=== PATIENT | male | born 1965 | race Caucasian/White ===

== ENCOUNTER → 2017-10-23 | Outpatient (CLI) | payer SELFPAY ==
[~2017-10-23] MED LIST: CEPH500 PO; CLON.1 PO; CLON.2 PO; FURO40 PO; LOSA25 PO; METO100ER PO; POTCHL20ER PO; ZESTORETIC 20-121 EA
[2017-10-23 11:27] LABS: BASOPHILS ABSOLUTE AUTO 0.03 K/mm3 (0.00-0.23); BASOPHILS PERCENT AUTO 1 % (0-2); EOSINOPHILS PERCENT AUTO 0 % (0-6); Hematocrit 47.3 % (37.0-53.0); Hemoglobin 17.6 g/dL (13.5-17.5); IMMATURE GRAN ABSOLUTE AUTO 0.06 K/mm3 (0.00-0.10); IMMATURE GRAN PERCENT AUTO 1 % (0-1); LYMPHOCYTES ABSOLUTE AUTO 1.83 K/mm3 (0.84-5.20); LYMPHOCYTES PERCENT AUTO 29 % (21-46); MONOCYTES ABSOLUTE AUTO 0.49 K/mm3 (0.16-1.47); MONOCYTES PERCENT AUTO 8 % (4-13); Mean Corpuscular HGB 31.9 pg (26.0-34.0); Mean Corpuscular HGB Conc 37.2 g/dL (31.5-36.5); Mean Corpuscular Volume 86 fL (80-100); Mean Platelet Volume 10.6 fL (9.1-12.4); NEUTROPHILS ABSOLUTE AUTO 3.89 K/mm3 (1.96-9.15); NEUTROPHILS PERCENT AUTO 62 % (41-73); Platelet Count 208 K/mm3 (150-400); RDW Coefficient Variation 12.4 % (11.7-14.2); RDW Standard Deviation 38.5 fL (35.1-46.3); Red Blood Cell Count 5.52 M/mm3 (4.30-5.90)
[2017-10-23 12:56] LABS: Anion Gap 12 mmol/L (6-16); Blood Urea Nitrogen 16 mg/dL (8-24); Bun/Creatinine Ratio 18.5 (12.0-20.0); CO2, Blood 22 mmol/L (21-32); Calcium, Blood 9.2 mg/dL (8.5-10.1); Chloride, Blood 104 mmol/L (98-108); Creatinine, Blood 0.86 mg/dL (0.60-1.20); Glomerular Filtration Rate >60 (60-); Glucose, Blood 363 mg/dL (70-99); Potassium, Blood 4.2 mmol/L (3.5-5.5); Sodium, Blood 138 mmol/L (136-145); Troponin I <0.015 ng/mL (0.000-0.040)
== END ==
LOC: LAB SHORT 11:22
PROVIDERS: Physician Assistant Surgical
DX: R07.9 Chest pain, unspecified (principal)
CPT/HCPCS: 80048; 84484; 85025

== ENCOUNTER 2018-06-26 13:06 | Emergency (ER) | payer MEDICAID ==
[~2018-06-26] VITALS: Ht 177.8 cm; Wt 117.9 kg
[~2018-06-26 13:06] MED LIST changes: -CEPH500 PO
[2018-06-26] MEDS ORDERED: CEPH500 PO (14:00)
== END 2018-06-26 14:27 | disposition home or self-care (01) ==
LOC: ER 13:06
DX: S61.012A Laceration without foreign body of left thumb without damage to nail, initial encounter (principal); Z23 Encounter for immunization; I10 Essential (primary) hypertension; Z79.899 Other long term (current) drug therapy; W26.0XXA Contact with knife, initial encounter
CPT/HCPCS: 12001; 90471; 90714; 99282

== ENCOUNTER 2021-02-08 16:02 | Inpatient (IN) | payer OTHER ==
[~2021-02-08] VITALS: Ht 180.3 cm; Wt 131.2 kg
== END 2021-02-08 23:05 | disposition short-term general hospital (02) | DRG 281 ==
LOC: ER 16:02 → ICUW 18:51 → PCU 21:20
PROVIDERS: ADMIT Family Medicine
PROC: B2111ZZ Fluoroscopy of Multiple Coronary Arteries using Low Osmolar Contrast (ICD-10-PCS; principal; 2021-02-08)
DX: I21.4 Non-ST elevation (NSTEMI) myocardial infarction (principal); E87.1 Hypo-osmolality and hyponatremia; I25.10 Atherosclerotic heart disease of native coronary artery without angina pectoris; I10 Essential (primary) hypertension; E78.5 Hyperlipidemia, unspecified; E66.01 Morbid (severe) obesity due to excess calories; E11.65 Type 2 diabetes mellitus with hyperglycemia; Z79.84 Long term (current) use of oral hypoglycemic drugs; Z79.899 Other long term (current) drug therapy; Z68.38 Body mass index [BMI] 38.0-38.9, adult; Z95.5 Presence of coronary angioplasty implant and graft; Z71.3 Dietary counseling and surveillance
CPT/HCPCS: 0241U; 36415; 71046; 76937; 80053; 82803; 82947; 83880; 84484; 85025; 85610; 85730; 93005; 93010; 93454; 96361; 96374; 99152; 99153; 99285-25; A9270; C1760; C1769; C1894; J0360; J1644; J2250; J3010; J7030; Q9967

== ENCOUNTER 2025-03-03 15:54 | Inpatient (IN) | payer BC ==
[2025-03-03] VITALS (7 sets, daily range): BP systolic 173–223; BP diastolic 102–131
[~2025-03-03] VITALS: Ht 180.3 cm; Wt 151.5 kg
[~2025-03-03 15:54] MED LIST changes: -AMLO5 PO; -ATOR20 PO; -Aspir 8181 MG PO; -Bumetanide2 MG PO; -CLOP75 PO; -INSULIN GL100 UNIT/1 SQ; -Isosorbide Mono30 MG PO; -JARDIANCE10 MG PO; -MATZIM LA180 MG PO; -METOPROLOL TART5010 PO; -SEMGLEE (Y100 UNIT/1 SQ; -SPIR25 PO; -TORSE20 PO
[2025-03-03] MEDS ORDERED: SEMGLEE (Y100 UNIT/1 SQ (16:07)
[2025-03-03] MEDS ORDERED: INSULIN GL100 UNIT/1 SQ (16:07)
[2025-03-03] MEDS ORDERED: MATZIM LA180 MG PO (16:07)
[2025-03-03] MEDS ORDERED: METOPROLOL TART5010 PO (16:09)
[2025-03-03] MEDS ORDERED: Aspirin 325 MG Tab PO ONE (16:15)
[2025-03-03] MEDS ORDERED: Labetalol HCL 5 MG/ML 4ML Injection (Single Dose) IV ONE (17:05)
[2025-03-03] MEDS ORDERED: Nitroglycerin/D5W 250 ML IV SCH (17:10)
[2025-03-03 17:31] LABS: Anti-Xa UFH, PHA Monitoring <0.10 IU/mL; International Normalized Ratio 1.02; Prothrombin Time Results 10.9 Sec (9.7-11.5)
[2025-03-03] MEDS ORDERED: Dose Adjust by Pharmacy XX STA (17:37)
[2025-03-03] MEDS ORDERED: Heparin Sodium 5000 Units/ML 1ML MDV IV ONE (17:40)
[2025-03-03] MEDS ORDERED: Magnesium Sulf 2 GM/Water 50ML 50 ML IV STA (17:49)
[2025-03-03] MEDS ORDERED: Potassium Chloride 20 MEQ TabCR PO ONE (18:00)
[2025-03-03] MEDS ORDERED: Heparin Sodium,Porcine/0.5 NS 500 ML IV SCH (18:00)
[2025-03-03] MEDS ORDERED: Acetaminophen 500 MG Tab PO PRN (18:20)
[2025-03-03] MEDS ORDERED: Morphine Sulfate 4 MG/1 ML Injection IV PRN (18:20)
[2025-03-03] MEDS ORDERED: Carvedilol 6.25 MG Tab PO SCH (19:00)
[2025-03-03] MEDS ORDERED: Furosemide 10 MG/ML 4ML Vial IV ONE (19:00)
--- NOTE | 2025-03-03 19:11 | NUR ---
QUINN ARRIVES TO [facility] AT 1835 VIA GURNEY WITH ELIJAH AND KINGA. PT TRANSFERS SELF TO BED, SON IN ROOM. PT DENIES ANY DISCOMFORT AT THIS TIME, LUNGS CLEAR, DIMINISHED ON THE RIGHT, LEGS WITH BILATERAL 3+ EDEMA FROM MID CALF DOWN. PULSES PALPABLE. OXYGEN ON AT 3L/NC SAT LOW 90S. SBP >180.
[2025-03-03] MEDS ORDERED: ATOR20 PO (19:30)
[2025-03-03] MEDS ORDERED: Bumetanide2 MG PO (19:33)
[2025-03-03] MEDS ORDERED: Insulin Glargine-Yfgn 100 Unit/mL 3 ML SYR SC SCH (21:00)
[2025-03-03] MEDS ORDERED: CloNIDine HCl 0.2 MG Tab PO SCH (21:00)
[2025-03-04] VITALS (49 sets, daily range): BP systolic 117–213; BP diastolic 19–124
[2025-03-04] MEDS ORDERED: Insulin Human Lispro 100 Units/ML 3ML Syringe SC SCH ×2 (01:10→16:30)
--- NOTE | 2025-03-04 01:25 | NUR ---
ASSUMPTION OF CARE ASSUMED CARE OF PATIENT AT 1900. RECIEVED BEDSIDE REPORT FROM DAY NURSE. PT IS A&O X 4, ABLE TO VOCALIZE NEEDS WELL MEDICAL HISTORY. AMBULATES IN ROOM WITH MINIMAL ASSISTANCE. CONTINUOUS CARDIAC MONITORING IN PLACE. MONITOR SHOWS NORMAL SINUS RHYTHM. HR HAS BEEN BETWEEN 80-110. SBP HAS BEEN BETWEEN 165-210. NITRO DRIP INTIATED AT 10 MCG/MIN, SEE FLOW SHEET FOR TITRATIONS. PT DENIES CHEST PAIN/ PRESSURE AT TIME OF ASSESSMENT PT ON 3L O2 NC. O2 SATURATION IS 90%. ABDOMEN APPEARS MILDLY DISDENDED AND BUE WELL BLE ARE EDEMATOUS. PT HAS A RED SCABBED OVER AREA ON BILATERAL SHINS. PATIENT USES URINAL TO VOID BED IN LOWEST POSTION, CALL LIGHT WITH IN REACH, CARE CONTINUES.
[2025-03-04 02:19] LABS: Hematocrit 44.2 % (37.0-53.0); Hemoglobin 14.8 g/dL (13.5-17.5); Mean Corpuscular HGB 30.3 pg (26.0-34.0); Mean Corpuscular HGB Conc 33.5 g/dL (31.5-36.5); Mean Corpuscular Volume 91 fL (80-100); Mean Platelet Volume 10.5 fL (9.1-12.4); Platelet Count 177 K/mm3 (150-400); RDW Standard Deviation 42.5 fL (35.1-46.3); Red Blood Cell Count 4.88 M/mm3 (4.30-5.90); White Blood Cell Count 7.89 K/mm3 (4.00-11.30)
[2025-03-04 02:36] LABS: Bun/Creatinine Ratio 10.5 (12.0-20.0); Calcium, Blood 8.2 mg/dL (8.5-10.1); Creatinine, Blood 1.43 mg/dL (0.60-1.20); Potassium, Blood 3.7 mmol/L (3.5-5.5)
[2025-03-04] MEDS ORDERED: Dose Adjust by Pharmacy XX STA (02:58)
[2025-03-04] MEDS ORDERED: Heparin Sodium 5000 Units/ML 1ML MDV IV ONE (03:05)
[2025-03-04] MEDS ORDERED: HydrALAZINE HCl 20 MG / ML 1ML Vial IV PRN (05:00)
--- NOTE | 2025-03-04 05:08 | NUR ---
SHIFT SUMMARY PT WAS A&OX4 AND SLEPT WELL DURING THE NIGHT. HR STAYED BETWEEN 80-110. SBP STAYED BETWEEN 165 -210. NITRO DRIP INFUSING AT 95 MCG/MIN SEE FLOW SHEET FOR TITRATIONS. PT HAS DENIED CHEST PAIN/PRESSURE THIS SHIFT. HEPARIN DRIP IS AT 17 MG/KD/HR. PT USES URINAL TO URINATE WITH OUT ASSISTANCE. PT BILATERAL UPPER AND LOWER EXTREMETIES ARE EDEMATOUS + 3 LOWER AND +2 UPPER. BED IN LOWEST POSITION, CARE CONTINUES.
--- NOTE | 2025-03-04 05:33 | NUR ---
PT UPDATE CALLED AND SPOKE WITH HOSPITALIST REGARDING PT BLOOD RPESSURE, NITRO INFUSING AT 75MCG/MIN. ORDERS RECEIVED FOR HYDRALAZINE, SEE EMAR. CARE CONTINUES.
[2025-03-04] MEDS ORDERED: Carvedilol 25 MG Tab PO SCH (08:00)
[2025-03-04] MEDS ORDERED: AmLODIPine Besylate 5 MG Tab PO ONE (08:10)
[2025-03-04] MEDS ORDERED: Clopidogrel Bisulfate 300 MG TABLET PO STA (08:32)
[2025-03-04] MEDS ORDERED: AmLODIPine Besylate 5 MG Tab PO SCH ×2 (09:00→21:00)
[2025-03-04] MEDS ORDERED: Atorvastatin 40 MG Tab PO SCH (09:00)
[2025-03-04] MEDS ORDERED: Furosemide 10 MG/ML 4ML Vial IV SCH ×2 (09:00)
[2025-03-04] MEDS ORDERED: Aspirin 81 MG Chew PO SCH (09:00)
[2025-03-04] MEDS ORDERED: NS 1,000 ML IV ONE ×2 (09:28→09:37)
[2025-03-04] MEDS ORDERED: NS 250 ML IV ONE (09:37)
[2025-03-04] MEDS ORDERED: Heparin Sodium 1000 Units/ML 10ML MDV ONE (09:37)
[2025-03-04] MEDS ORDERED: Nitroglycerin 2 MG/20 ML BTL ONE (09:38)
[2025-03-04] MEDS ORDERED: Verapamil HCL 2.5 MG/ML 2ML Injection ONE ×2 (09:49→10:57)
[2025-03-04] MEDS ORDERED: FentaNYL Citrate 50 MCG/ML 2 ML Injection ONE (09:51)
[2025-03-04] MEDS ORDERED: Tirofiban HCL Monohydrate 3.75 MG/15 ML Vial ONE ×2 (11:17→11:55)
[2025-03-04] MEDS ORDERED: Clopidogrel Bisulfate 300 MG TABLET ONE (12:04)
--- NOTE | 2025-03-04 13:15 | NUR ---
PT ARRIVED 1230. PT ARRIVED BACK FROM THE SEPTIC TECHNICIAN AT THE TIME ABOVE. PT HAS TWO TR BANDS WITH ONE ON EACH WRIST. SITE APPEARS WNL. PT DENIES ANY NUMBNESS OR TINGLING IN HIS FINGERS OR HANDS AND HAS GOOD CAP REFILL. PT DENIES ANY PAIN. RISK OF BLEEDING EDUCATED TO FAMILY AND PT. DISCHARGE LIFESTYLE CHANGES AND MEDICATION COMPLIANCE EDUCATION GIVEN. WILL CONTINUE WITH THE PLAN OF CARE.
[2025-03-04 15:07] LABS: Bun/Creatinine Ratio 12.4 (12.0-20.0); Calcium, Blood 7.7 mg/dL (8.5-10.1); Creatinine, Blood 1.37 mg/dL (0.60-1.20); Potassium, Blood 3.7 mmol/L (3.5-5.5)
[2025-03-04] MEDS ORDERED: Potassium Chloride 20 MEQ TabCR PO ONE (16:00)
--- NOTE | 2025-03-04 18:56 | NUR ---
SHIFT SUMMARY PT RECEIVED ECHO TODAY, SEE CHART FOR RESULTS. PT WENT BACK TO GENERAL SURGEON AND CAME BACK TO ICU WITH TWO TR BANDS. D/T INCREASED ACT LAB RESULTS THIS NURSE WAITED TWICE LONG TO START DEFLATING TR BAND. TR BAND STILL WNL WITHOUT ANY NUMBESS OR TINGLING IN THE HANDS OR FINGERS. PT SITTING IN THE CHAIR THIS AFTERNOON. WILL CONTINUE WITH THE PLAN OF CARE.
[2025-03-04] MEDS ORDERED: NS 250 ML IV PRN (23:10)
--- NOTE | 2025-03-04 23:18 | NUR ---
ASSUMPTION OF CARE ASSUMED CARE OF PATIENT AT 1900. RECEIVED BEDSIDE REPORT FROM DAY NURSE. PT IS A&OX4. PATIENT IS ABLE TO VOCALIZE NEEDS AND AMBULATES IN ROOM WITHOUT ASSISTANCE. CONTINUOUS CARDIAC MONITORING IN PLACE. MONITOR CONTINUES TO SHOW SINUS RHYTHM. HR HAS BEEN BETWEEN 70-100. SBP HAS BEEN BETWEEN 115-150. NITRO DRIP INFUSING AT 60 MCG/MIN, SEE FLOW SHIT FOR TITRATIONS. PT DENIES CHEST PAIN/PRESSURE. TR BANDS IN PLACE BILATERALY AND HAVE HAD AIR REMOVED PER PROTOCAL. PT ON 3L 02 WITH NC. 02 SAT IS ABOVE 92% PT HAS TWO AC IV'S IN LAC. PT'S LEGS CONTINUE TO BE EDEMATOUS. PT USES URINAL TO VOID. BED IN LOWEST POSTION, CALL LIGHT WITH IN REACH, CARE CONTINUES.
[2025-03-05] VITALS (22 sets, daily range): BP systolic 114–178; BP diastolic 72–102
--- NOTE | 2025-03-05 03:30 | NUR ---
PT UPDATE BILATERAL TR BANDS DEFLATED THIS SHIFT WITHOUT COMPLICATIONS. TR BANDS REMOVED, SITES CLEANED AND TEGADERM PLACED. SITES CLEAN, NO OOZING NOTED, NO HEMATOMA FORMATION NOTED TO EITHER SITE. ARM BOARDS REPLACE, PT EDUCATED ON SITE CARE. PT COMPLAINING OF PAIN TO RADIAL SITES, MEDICATED PER EMAR. CARE CONTINUES.
[2025-03-05 03:57] LABS: BASOPHILS ABSOLUTE AUTO 0.03 K/mm3 (0.00-0.23); BASOPHILS PERCENT AUTO 0 % (0-2); EOSINOPHILS PERCENT AUTO 0 % (0-6); Hematocrit 39.4 % (37.0-53.0); Hemoglobin 13.2 g/dL (13.5-17.5); IMMATURE GRAN ABSOLUTE AUTO 0.03 K/mm3 (0.00-0.10); IMMATURE GRAN PERCENT AUTO 0 % (0-1); LYMPHOCYTES ABSOLUTE AUTO 1.76 K/mm3 (0.84-5.20); LYMPHOCYTES PERCENT AUTO 18 % (21-46); MONOCYTES ABSOLUTE AUTO 1.17 K/mm3 (0.16-1.47); MONOCYTES PERCENT AUTO 12 % (4-13); Mean Corpuscular HGB 30.4 pg (26.0-34.0); Mean Corpuscular HGB Conc 33.5 g/dL (31.5-36.5); Mean Corpuscular Volume 91 fL (80-100); Mean Platelet Volume 10.5 fL (9.1-12.4); NEUTROPHILS ABSOLUTE AUTO 6.75 K/mm3 (1.96-9.15); NEUTROPHILS PERCENT AUTO 69 % (41-73); Platelet Count 189 K/mm3 (150-400); RDW Standard Deviation 42.7 fL (35.1-46.3); Red Blood Cell Count 4.34 M/mm3 (4.30-5.90); White Blood Cell Count 9.74 K/mm3 (4.00-11.30)
[2025-03-05 04:16] LABS: Albumin/Globulin Ratio 0.5 (0.8-1.8); Bilirubin, Total 0.4 mg/dL (0.1-1.0); Calcium, Blood 8.3 mg/dL (8.5-10.1); Creatinine, Blood 1.44 mg/dL (0.60-1.20); Globulin, Blood 3.8 g/dL (2.2-4.0); Potassium, Blood 3.6 mmol/L (3.5-5.5); Total Protein, Blood 5.8 g/dL (6.4-8.2)
--- NOTE | 2025-03-05 05:13 | NUR ---
SHIFT SUMMARY PT WAS A&O x4 AND SLEPT WELL THROUGH THE NIGHT. HR STAYED BETWEEN 60-80. SBP STAYED BETWEEN 115-150. NITRO DRIP INFUSING AT 40 MCG/MIN SEE FLOW SHEET FOR TITRATION. PT HAS DENIED CHEST PAIN/PRESSURE THIS SHIFT. PT USES URINAL TO URINATE WITH OUT ASSISTANCE. PT UPPER AND LOWER EXTREMITIES ARE EDEMATOUS. PT TOLERATED TR BAND DEFLATION. PERIPHERAL IV IN PLACE TO RIGHT AC AND LEFT AC. PT RESTS IN RECLINER. CARE CONTINUES.
[2025-03-05] MEDS ORDERED: Potassium Chloride 20 MEQ TabCR PO ONE (07:00)
[2025-03-05] MEDS ORDERED: Isosorbide Mononitrate 60 MG TABCR PO SCH (09:00)
[2025-03-05] MEDS ORDERED: Empagliflozin 10 MG TAB PO SCH (09:00)
[2025-03-05] MEDS ORDERED: Clopidogrel Bisulfate 75 MG Tab PO SCH (09:00)
[2025-03-05] MEDS ORDERED: Spironolactone 50 MG Tab PO SCH (09:00)
[2025-03-05] MEDS ORDERED: Torsemide 20 MG TAB PO SCH ×2 (09:00→21:00)
--- NOTE | 2025-03-05 14:34 | NUR ---
REPORT TO 303 NURSE GIVEN. PT BEING TRANSFERED VIA WHEEL CHAIR. PT CONTINUES TO DENY CHEST PAIN.
[2025-03-05] MEDS ORDERED: Enoxaparin 40 MG/0.4 ML SYR SC SCH (15:00)
--- NOTE | 2025-03-05 15:58 | NUR ---
ADMIT NOTE PT A&OX4. PT ADMITTED DUE TO ACUTE CORONARY SYNDROME. SITES ON BILATERAL WRIST HAS TEGADERM IN PLACE AND WITHOUT DRAINAGE. PT ARRIVED ON UNIT AT 1445. PT TRANSFERED SELF FROM WHEELCHAIR TO BED. PT ORIENTED TO UNIT/FALL PRECAUTIONS/CALL LIGHT. PT ON ROOM AIR. SPO2 IS 92%. PT DENIES CHEST PAIN OR PAIN. INCENTIVE SPIROMETER ENCOURAGED. VSS. PT ON TELE NSR 73 PER NETWORK ARCHITECT. PT CONT OF URINE AND BM. PT SITTING UP IN CHAIR, AT BEDSIDE. CALL LIGHT IN REACH,
--- NOTE | 2025-03-05 18:47 | NUR ---
NOTE PT BLOOD PRESSURE 178/102. GAVE CARVEDILOL SCHEDULED, RECHECKED BP, BP IS 171/92. PT WILL GET SCHEDULED CLONIDINE, COZAAR, TORSEMIDE SCHEDULED AT BEDTIME, WILL PASS ON TO NIGHT RN, PT MAY NEED PRN
[2025-03-05 19:33] LABS: Bun/Creatinine Ratio 16.7 (12.0-20.0); Calcium, Blood 8.4 mg/dL (8.5-10.1); Creatinine, Blood 1.38 mg/dL (0.60-1.20); Potassium, Blood 4.4 mmol/L (3.5-5.5)
[2025-03-05] MEDS ORDERED: Atorvastatin 40 MG Tab PO SCH (21:00)
[2025-03-05] MEDS ORDERED: Losartan Potassium 50 MG Tab PO SCH (21:00)
[2025-03-05] MEDS ORDERED: CloNIDine 0.1 MG Tab PO SCH (21:00)
[2025-03-06 03:39] VITALS: BP 169/98
--- NOTE | 2025-03-06 05:01 | NUR ---
EXECUTIVE HOUSEKEEPER SUMMARY: PT A&O X4. MAKES NEEDS KNOWN. MEDICATED PER EMAR ORDERS FOR HEADACHE AT BEGINNING OF SHIFT; EFFECTIVE. TELE IN PLACE; NSR 70'S. NO ACUTE EVENTS T/O SHIFT. INDEPENDENT IN ROOM. BED IN LOWEST POSITION. CALL LIGHT IN REACH. CARES ONGOING ORDERED.
[2025-03-06 05:26] LABS: BASOPHILS ABSOLUTE AUTO 0.04 K/mm3 (0.00-0.23); BASOPHILS PERCENT AUTO 1 % (0-2); EOSINOPHILS ABSOLUTE AUTO 0.23 K/mm3 (0.00-0.68); EOSINOPHILS PERCENT AUTO 3 % (0-6); Hematocrit 40.5 % (37.0-53.0); Hemoglobin 13.5 g/dL (13.5-17.5); IMMATURE GRAN ABSOLUTE AUTO 0.05 K/mm3 (0.00-0.10); IMMATURE GRAN PERCENT AUTO 1 % (0-1); LYMPHOCYTES ABSOLUTE AUTO 2.09 K/mm3 (0.84-5.20); LYMPHOCYTES PERCENT AUTO 25 % (21-46); MONOCYTES ABSOLUTE AUTO 0.77 K/mm3 (0.16-1.47); MONOCYTES PERCENT AUTO 9 % (4-13); Mean Corpuscular HGB 30.3 pg (26.0-34.0); Mean Corpuscular HGB Conc 33.3 g/dL (31.5-36.5); Mean Corpuscular Volume 91 fL (80-100); Mean Platelet Volume 10.6 fL (9.1-12.4); NEUTROPHILS PERCENT AUTO 62 % (41-73); Platelet Count 175 K/mm3 (150-400); RDW Coefficient Variation 12.9 % (11.7-14.2); RDW Standard Deviation 42.1 fL (35.1-46.3); Red Blood Cell Count 4.46 M/mm3 (4.30-5.90); White Blood Cell Count 8.28 K/mm3 (4.00-11.30)
[2025-03-06 05:48] LABS: Calcium, Blood 8.4 mg/dL (8.5-10.1); Creatinine, Blood 1.44 mg/dL (0.60-1.20); Potassium, Blood 3.7 mmol/L (3.5-5.5)
[2025-03-06 07:16] VITALS: BP 159/97
[2025-03-06] MEDS ORDERED: Spironolactone 25 MG Tab PO SCH (09:00)
[2025-03-06 09:27] VITALS: BP 146/93
[2025-03-06] MEDS ORDERED: TORSE20 PO (10:50)
[2025-03-06] MEDS ORDERED: CLOP75 PO (10:51)
[2025-03-06] MEDS ORDERED: Aspir 8181 MG PO (10:51)
[2025-03-06] MEDS ORDERED: Isosorbide Mono30 MG PO (10:52)
[2025-03-06] MEDS ORDERED: JARDIANCE10 MG PO (10:52)
[2025-03-06] MEDS ORDERED: SPIR25 PO (10:52)
[2025-03-06] MEDS ORDERED: AMLO5 PO (10:53)
--- NOTE | 2025-03-06 12:58 | NUR ---
DISCHARGE NOTE PT A&OX4. PT ADMITTED DUE TO ACUTE CORONARY SYNDROME. PT REPORTS NO PAIN/CHEST PAIN/SOB. VSS. PT INDEPENDENT IN ROOM. PT REPORTS TODAY "BETTER THAN BASELINE." MEDS FAXED TO PREFERED PHARMACY. WENT OVER DISCHARGE INSTRUCTIONS W PT. PT REPORTS "UNDERSTANDING MONITOR WEIGHT, HEART HEALTHY DIET, MONITOR BP, WILL GET LABS WEDNESDAY AND SEE PCP." IV D/C. TELE D/C. PT ESCORTED TO PATIENT ENTERENCE BY UNDERCOAT SPRAYER VIA WHEELCHAIR. PT LEFT WITH PERSONAL BELONGINGS.
== END 2025-03-06 11:42 | disposition home or self-care (01) | DRG 321 ==
LOC: ER 15:54 → ICUE 17:35 → ERHOLD 17:35 → MEDS 17:35 → ICUE 18:45 → MEDS 03-05 14:50
PROVIDERS: Hospitalist; Nurse Practitioner Acute Care; Student in an Organized Health Care Education/Training Program; ADMIT Internal Medicine
PROC: 027034Z Dilation of Coronary Artery, One Artery with Drug-eluting Intraluminal Device, Percutaneous Approach (ICD-10-PCS; principal; 2025-03-04)
PROC: 4A023N7 Measurement of Cardiac Sampling and Pressure, Left Heart, Percutaneous Approach (ICD-10-PCS; 2025-03-04)
PROC: B2111ZZ Fluoroscopy of Multiple Coronary Arteries using Low Osmolar Contrast (ICD-10-PCS; 2025-03-04)
PROC: B2131ZZ Fluoroscopy of Multiple Coronary Artery Bypass Grafts using Low Osmolar Contrast (ICD-10-PCS; 2025-03-04)
DX: I21.4 Non-ST elevation (NSTEMI) myocardial infarction (principal); I50.31 Acute diastolic (congestive) heart failure; I16.1 Hypertensive emergency; N17.9 Acute kidney failure, unspecified; Z68.42 Body mass index [BMI] 45.0-49.9, adult; I13.0 Hypertensive heart and chronic kidney disease with heart failure and stage 1 through stage 4 chronic kidney disease, or unspecified chronic kidney disease; E78.5 Hyperlipidemia, unspecified; I25.10 Atherosclerotic heart disease of native coronary artery without angina pectoris; E87.6 Hypokalemia; E83.51 Hypocalcemia; E11.65 Type 2 diabetes mellitus with hyperglycemia; D69.6 Thrombocytopenia, unspecified; E66.01 Morbid (severe) obesity due to excess calories; G47.33 Obstructive sleep apnea (adult) (pediatric); I16.0 Hypertensive urgency; N18.30 Chronic kidney disease, stage 3 unspecified; E11.22 Type 2 diabetes mellitus with diabetic chronic kidney disease; D63.1 Anemia in chronic kidney disease; Z79.82 Long term (current) use of aspirin; Z79.4 Long term (current) use of insulin; Z79.84 Long term (current) use of oral hypoglycemic drugs; Z79.899 Other long term (current) drug therapy; Z95.1 Presence of aortocoronary bypass graft; Z79.891 Long term (current) use of opiate analgesic
CPT/HCPCS: 36415; 71045; 76937; 80048; 80053; 82947; 83735; 83880; 84443; 84484; 85025; 85027; 85347; 85520; 85610; 85730; 92937; 93005; 93010; 93459; 94760; 96374; 99152; 99153; 99285-25; A9270; C1769; C1874; C1887; C1894; C8929; J0360; J1644; J1650; J1815; J1938; J2270; J3010; J3246; J3475; J7030; J7050; Q9957; Q9967

== ENCOUNTER → 2025-03-03 | Outpatient (CLI) | payer BC ==
[~2025-03-03] MED LIST changes: +AMLO5 PO; +AMLODIPINE BESYL5 MG PO; +ATOR20 PO; +ATORVASTATIN CA20 MG PO; +Aspir 8181 MG PO; +Bumetanide2 MG PO; +CARVEDILOL12.5 MG PO; +CEPH500 PO; +CLOP75 PO; +INSULIN GL100 UNIT/1 SQ; +Isosorbide Mono30 MG PO; +JARDIANCE10 MG PO; +LOSA50 PO; +MATZIM LA180 MG PO; +METFORMIN HCL500 M2 PO; +METOPROLOL TART5010 PO; +NADOLOL PO; +SEMGLEE (Y100 UNIT/1 SQ; +SPIR25 PO; +TORSE20 PO
[2025-03-03 15:14] LABS: BASOPHILS ABSOLUTE AUTO 0.05 K/mm3 (0.00-0.23); BASOPHILS PERCENT AUTO 1 % (0-2); EOSINOPHILS ABSOLUTE AUTO 0.17 K/mm3 (0.00-0.68); EOSINOPHILS PERCENT AUTO 3 % (0-6); Hematocrit 36.2 % (37.0-53.0); Hemoglobin 12.1 g/dL (13.5-17.5); IMMATURE GRAN ABSOLUTE AUTO 0.03 K/mm3 (0.00-0.10); IMMATURE GRAN PERCENT AUTO 1 % (0-1); LYMPHOCYTES ABSOLUTE AUTO 1.17 K/mm3 (0.84-5.20); LYMPHOCYTES PERCENT AUTO 20 % (21-46); MONOCYTES ABSOLUTE AUTO 0.74 K/mm3 (0.16-1.47); MONOCYTES PERCENT AUTO 13 % (4-13); Mean Corpuscular HGB 30.3 pg (26.0-34.0); Mean Corpuscular HGB Conc 33.4 g/dL (31.5-36.5); Mean Corpuscular Volume 91 fL (80-100); Mean Platelet Volume 10.5 fL (9.1-12.4); NEUTROPHILS ABSOLUTE AUTO 3.59 K/mm3 (1.96-9.15); NEUTROPHILS PERCENT AUTO 62 % (41-73); Platelet Count 147 K/mm3 (150-400); RDW Coefficient Variation 12.8 % (11.7-14.2); White Blood Cell Count 5.75 K/mm3 (4.00-11.30)
[2025-03-03 15:34] LABS: Albumin, Blood 2.3 g/dL (3.4-5.0); Albumin/Globulin Ratio 0.7 (0.8-1.8); Bilirubin, Total 0.4 mg/dL (0.1-1.0); Bun/Creatinine Ratio 10.5 (12.0-20.0); Calcium, Blood 7.7 mg/dL (8.5-10.1); Creatinine, Blood 1.43 mg/dL (0.60-1.20); Globulin, Blood 3.5 g/dL (2.2-4.0); Potassium, Blood 3.3 mmol/L (3.5-5.5); Thyroid Stimulating Hormone 1.214 uIU/mL (0.360-4.800); Total Protein, Blood 5.8 g/dL (6.4-8.2)
== END ==
LOC: LAB SHORT 15:10 → LAB 15:10
PROVIDERS: Internal Medicine
DX: I16.1 Hypertensive emergency (principal)
CPT/HCPCS: 80053; 83880; 84443; 84484; 85025

== ENCOUNTER 2025-06-30 19:03 | Observation (INO) | payer BC ==
[~2025-06-30] VITALS: Ht 177.8 cm; Wt 128.0 kg
[~2025-06-30 19:03] MED LIST changes: +AMLO5 PO; +ATOR20 PO; +Aspir 8181 MG PO; +Bumetanide2 MG PO; +CLOP75 PO; +INSULIN GL100 UNIT/1 SQ; +Isosorbide Mono30 MG PO; +JARDIANCE10 MG PO; +MATZIM LA180 MG PO; +METOPROLOL TART5010 PO; +SEMGLEE (Y100 UNIT/1 SQ; +SPIR25 PO; +TORSE20 PO
[2025-06-30 20:45] LABS: BASOPHILS ABSOLUTE AUTO 0.04 K/mm3 (0.00-0.23); BASOPHILS PERCENT AUTO 0 % (0-2); EOSINOPHILS ABSOLUTE AUTO 0.00 K/mm3 (0.00-0.68); EOSINOPHILS PERCENT AUTO 0 % (0-6); Hematocrit 40.5 % (37.0-53.0); Hemoglobin 13.8 g/dL (13.5-17.5); IMMATURE GRAN ABSOLUTE AUTO 0.04 K/mm3 (0.00-0.10); IMMATURE GRAN PERCENT AUTO 0 % (0-1); LYMPHOCYTES ABSOLUTE AUTO 2.33 K/mm3 (0.84-5.20); LYMPHOCYTES PERCENT AUTO 21 % (21-46); MONOCYTES ABSOLUTE AUTO 0.96 K/mm3 (0.16-1.47); MONOCYTES PERCENT AUTO 9 % (4-13); Mean Corpuscular HGB Conc 34.1 g/dL (31.5-36.5); Mean Corpuscular Volume 88 fL (80-100); NEUTROPHILS ABSOLUTE AUTO 7.64 K/mm3 (1.96-9.15); NEUTROPHILS PERCENT AUTO 69 % (41-73); NRBC ABSOLUTE 0.00 K/mm3 (0.00-0.02); NRBC Auto 0.0 /100 WBC (0.0-0.2); Platelet Count 177 K/mm3 (150-400); RDW Coefficient Variation 13.2 % (11.7-14.2); RDW Standard Deviation 42.1 fL (35.1-46.3)
[2025-06-30 21:29] LABS: Alanine Aminotransfer (ALT/SGP 39.0 U/L (12-78); Albumin, Blood 3.0 g/dL (3.4-5.0); Albumin/Globulin Ratio 0.7 (0.8-1.8); Anion Gap 9.0 mmol/L (3-11); Aspartate Aminotrans (AST/SGOT 42.0 U/L (12-37); Bilirubin, Total 0.6 mg/dL (0.1-1.0); Blood Urea Nitrogen 36.0 mg/dL (8-24); CO2, Blood 27.0 mmol/L (21-32); Calcium, Blood 8.8 mg/dL (8.5-10.1); Chloride, Blood 105.0 mmol/L (98-108); Creatinine, Blood 1.89 mg/dL (0.60-1.20); Globulin, Blood 4.4 g/dL (2.2-4.0); Glucose, Blood 135.0 mg/dL (70-99); Potassium, Blood 5.3 mmol/L (3.5-5.5); Sodium, Blood 136.0 mmol/L (136-145); Total Protein, Blood 7.4 g/dL (6.4-8.2)
[2025-06-30] MEDS ORDERED: DILT180 PO (22:03)
[2025-06-30] MEDS ORDERED: METO50 PO (22:03)
[2025-06-30] MEDS ORDERED: Ondansetron HCl 2 MG / ML 2ML Vial IV PRN (23:25)
[2025-07-01] MEDS ORDERED: CeFAZolin Sodium 1,000 MG in NS 50 ML IV SCH (00:14)
[2025-07-01 00:26] VITALS: BP 143/82
[2025-07-01] MEDS ORDERED: AMLO5 PO (00:28)
[2025-07-01] MEDS ORDERED: NS 250 ML IV PRN (00:40)
--- NOTE | 2025-07-01 01:15 | NUR ---
ADMIT NOTE 59 YR OLD MALE ADMITTED TO FLOOR FROM THE ED WITH DX OF CELLULITIS OF LLE. VSS. A/O X 4. COOPERATIVE. LEFT LOWER LEG/CALF AREA SWELLING WITH REDNESS AND LEFT GREAT TOE SWOLLEN AND RED. SEE PICS IN CHART. UP AD BRITT. IV ANTIBIOTICS STARTED - SEE MAR FOR DETAILS. ORIENTED TO USE OF CALL LIGHT AND BED CONTROL. CALL LIGHT IN REACH, ARILS UP X 2 AND BED IN LOW POSITION FOR SAFETY.
--- NOTE | 2025-07-01 03:34 | NUR ---
INFORMATION CONSULTANT SUMMARY WAS ADMITTER EARLIER IN THE SHIFT WITH DX OF CELLULITIS OF LLE. (SEE PICS IN CHART). VSS. ALERT AND ORIENTED. UP AD BRITT. RECEIVING IV ANTIBIOTICS FOR CELLULITIS. COOPERATIVE WITH CARE. ORIENTED TO USE OF CALL LIGHT. HAS BEEN RESTING QUIETLY WITH FEW INTERRUPTIONS. CALL LIGHT IN REACH, RAILS UP X 2 AND BED IN LOW POSITION FOR SAFETY. WILL CONTINUE TO MONITOR.
[2025-07-01 05:39] LABS: BASOPHILS ABSOLUTE AUTO 0.04 K/mm3 (0.00-0.23); BASOPHILS PERCENT AUTO 0 % (0-2); EOSINOPHILS ABSOLUTE AUTO 0.21 K/mm3 (0.00-0.68); EOSINOPHILS PERCENT AUTO 2 % (0-6); Hematocrit 39.5 % (37.0-53.0); Hemoglobin 13.5 g/dL (13.5-17.5); IMMATURE GRAN ABSOLUTE AUTO 0.05 K/mm3 (0.00-0.10); IMMATURE GRAN PERCENT AUTO 1 % (0-1); LYMPHOCYTES ABSOLUTE AUTO 2.36 K/mm3 (0.84-5.20); LYMPHOCYTES PERCENT AUTO 26 % (21-46); MONOCYTES ABSOLUTE AUTO 0.88 K/mm3 (0.16-1.47); MONOCYTES PERCENT AUTO 10 % (4-13); Mean Corpuscular HGB Conc 34.2 g/dL (31.5-36.5); Mean Corpuscular Volume 88 fL (80-100); NEUTROPHILS ABSOLUTE AUTO 5.66 K/mm3 (1.96-9.15); NEUTROPHILS PERCENT AUTO 62 % (41-73); NRBC ABSOLUTE 0.00 K/mm3 (0.00-0.02); NRBC Auto 0.0 /100 WBC (0.0-0.2); Platelet Count 165 K/mm3 (150-400); RDW Coefficient Variation 13.2 % (11.7-14.2); RDW Standard Deviation 42.7 fL (35.1-46.3)
[2025-07-01 05:45] VITALS: BP 145/87
[2025-07-01 06:00] LABS: Magnesium, Blood 2.5 mg/dL (1.6-2.4)
[2025-07-01 06:01] LABS: Alanine Aminotransfer (ALT/SGP 33.0 U/L (12-78); Albumin, Blood 2.7 g/dL (3.4-5.0); Albumin/Globulin Ratio 0.7 (0.8-1.8); Anion Gap 11.0 mmol/L (3-11); Aspartate Aminotrans (AST/SGOT 16.0 U/L (12-37); Bilirubin, Total 0.3 mg/dL (0.1-1.0); Blood Urea Nitrogen 37.0 mg/dL (8-24); CO2, Blood 24.0 mmol/L (21-32); Calcium, Blood 8.5 mg/dL (8.5-10.1); Chloride, Blood 110.0 mmol/L (98-108); Creatinine, Blood 1.83 mg/dL (0.60-1.20); Globulin, Blood 3.8 g/dL (2.2-4.0); Glucose, Blood 143.0 mg/dL (70-99); Potassium, Blood 4.1 mmol/L (3.5-5.5); Sodium, Blood 141.0 mmol/L (136-145); Total Protein, Blood 6.5 g/dL (6.4-8.2)
--- NOTE | 2025-07-01 07:29 | NUR ---
ASSUMED CARE OF PATIENT AT THIS TIME, BEDSIDE REPORT FROM CECIL MARTINEZ. PATIENT RESTING IN BED, DENIES NEEDS OR PAIN AT THIS TIME. CHART REVIEWED.
[2025-07-01] MEDS ORDERED: Insulin Human Lispro 100 Units/ML 3ML Syringe SC SCH (07:30)
[2025-07-01 07:33] VITALS: BP 155/91
[2025-07-01] MEDS ORDERED: Enoxaparin 40 MG/0.4 ML SYR SC SCH (09:00)
[2025-07-01] MEDS ORDERED: Torsemide 20 MG TAB PO SCH (09:00)
[2025-07-01] MEDS ORDERED: Lactobacil 2-S.Thermo-Bifido 1 1 Cap PO SCH (09:00)
[2025-07-01] MEDS ORDERED: Isosorbide Mononitrate 60 MG TABCR PO SCH (09:00)
[2025-07-01] MEDS ORDERED: CARV25 PO (13:33)
[2025-07-01] MEDS ORDERED: CEPH500 PO (13:38)
[2025-07-01] MEDS ORDERED: VISBIOME 112.51 EACH PO (13:38)
--- NOTE | 2025-07-01 14:48 | NUR ---
PATIENT IV REMOVED, MEDICATON AND FOLLOW UP APPOINTMENTS DISCUSSED WITH PATIENT AND FAMILY AT BEDSIDE. PATIENT VERABLIED UNDERSTANDING. PATIENT WALKED TO DOOR BY MOVIE OPERATOR AND DISHCARGED HOME.
[2025-07-01] MEDS ORDERED: Insulin Glargine,Hum.Rec.Anlog 100 UNIT/ML 3MLSYR SC SCH (21:00)
== END 2025-07-01 15:00 | disposition home or self-care (01) ==
LOC: ER 19:03 → MEDS 19:04 → ER 23:19 → MEDS 07-01 00:25 → ENPENDDIS 07-01 12:34 → MEDS 07-01 15:00
PROVIDERS: Student in an Organized Health Care Education/Training Program; ADMIT Student in an Organized Health Care Education/Training Program
DX: L03.116 Cellulitis of left lower limb (principal); I13.0 Hypertensive heart and chronic kidney disease with heart failure and stage 1 through stage 4 chronic kidney disease, or unspecified chronic kidney disease; E11.22 Type 2 diabetes mellitus with diabetic chronic kidney disease; N18.30 Chronic kidney disease, stage 3 unspecified; I50.32 Chronic diastolic (congestive) heart failure; I25.10 Atherosclerotic heart disease of native coronary artery without angina pectoris; E78.5 Hyperlipidemia, unspecified; E66.01 Morbid (severe) obesity due to excess calories; Z68.41 Body mass index [BMI] 40.0-44.9, adult; Z87.891 Personal history of nicotine dependence; Z79.02 Long term (current) use of antithrombotics/antiplatelets; Z79.4 Long term (current) use of insulin; Z79.82 Long term (current) use of aspirin; Z79.84 Long term (current) use of oral hypoglycemic drugs; Z79.899 Other long term (current) drug therapy; Z95.1 Presence of aortocoronary bypass graft; Z95.5 Presence of coronary angioplasty implant and graft
CPT/HCPCS: 36415; 80053; 82947; 83036; 83735; 85025; 96365; 99284; A9270; G0378; J0690; J1650; J7050